=== PATIENT | male | born 1950 | race Caucasian/White ===

== ENCOUNTER → 2020-08-12 | Outpatient (REF) | payer OTHER ==
[2020-08-12 19:03] LABS: ALBUMIN 4.1 GM/DL (3.2-5.2); BILIRUBIN,TOTAL 0.6 MG/DL (0.2-1.0); CALCIUM LEVEL 9.2 MG/DL (8.8-10.2); CHOLESTEROL RISK RATIO 3.04 (<5); CREATININE FOR GFR 1.27 MG/DL (0.70-1.30); GLOMERULAR FILTRATION RATE 59.7 (>42); POTASSIUM SERUM 4.5 MEQ/L (3.5-5.1); TOTAL PROTEIN 6.6 GM/DL (6.4-8.2)
[2020-08-12 19:09] LABS: MALB URINE SIEMENS 7.6 MG/L; MAU/CREAT RATIO 3.8 MCG/MG (0.0-30.0)
== END ==
LOC: M PLALAB 17:05
PROVIDERS: ATTEND Family Medicine
DX: E55.9 Vitamin D deficiency, unspecified (principal); E78.5 Hyperlipidemia, unspecified; N06.9 Isolated proteinuria with unspecified morphologic lesion; Z12.5 Encounter for screening for malignant neoplasm of prostate

== ENCOUNTER 2024-02-12 20:48 | Emergency (ER) | payer MEDICARE, OTHER ==
[~2024-02-12] VITALS: Ht 180.3 cm; Wt 78.0 kg
[2024-02-12] MEDS: LIDOCAINE W/EPINEPHRINE 1% 20ML VIAL SC ONE (23:05)
[2024-02-12] MEDS: ONDANSETRON 4MG 2ML VIAL IV ONE (23:44)
[2024-02-12] MEDS: AMPICILLIN SOD/SULBACTAM SOD 3 GM in D5W MINI-BAG PLUS 100 ML IV ONE (23:44)
[2024-02-12] MEDS: ACETAMINOPHEN 325 MG TAB PO ONE (23:45)
[2024-02-12] MEDS: BOOSTRIX VACCINE (TETANUS/DIPHTH/ACEL. PERTUSSIS) 0.5ML SYR IM ONE (23:46)
[2024-02-13] MEDS ORDERED: KETOROLAC 30 MG/ML 1ML VIAL As Ordered ONE (01:27)
[2024-02-13] MEDS ORDERED: METOCLOPRAMIDE INJ 10MG/2ML VIAL As Ordered ONE (01:28)
[2024-02-13 03:09] VITALS: TEMP 97.8; O2SAT 97
[2024-02-13 03:15] VITALS: BP 100/55
== END 2024-02-13 03:30 | disposition short-term general hospital (02) ==
LOC: M ED 20:48
DX: S01.511A Laceration without foreign body of lip, initial encounter (principal); S02.40DA Maxillary fracture, left side, initial encounter for closed fracture; S02.2XXA Fracture of nasal bones, initial encounter for closed fracture; Y04.2XXA Assault by strike against or bumped into by another person, initial encounter; Y92.89 Other specified places as the place of occurrence of the external cause; Y93.89 Activity, other specified; Y99.8 Other external cause status
CPT/HCPCS: 12031; 70450; 70486; 72125; 90715; 93005; 93041; 94760; 96365; 96375; 99285; J0295; J2405

== ENCOUNTER → 2025-02-12 | Outpatient (REF) | payer MEDICARE, BC | LOC: M SMT 13:19 | PROVIDERS: ATTEND Urology | DX: R97.20 Elevated prostate specific antigen [PSA] (principal); C61 Malignant neoplasm of prostate ==